=== PATIENT | male | born 1960 | race Caucasian/White ===

== ENCOUNTER 2023-03-21 20:17 | Emergency (ER) | payer BC, SELFPAY ==
--- NOTE | ~2023-03-21 | XR_ITS ---
EXAMINATION: XR elbow LT min 3V DATE: 03/21/2023 21:54 INDICATION: Left elbow pain and swelling TECHNIQUE: Anteroposterior, two oblique and lateral views of the left elbow were obtained. COMPARISON: None. FINDINGS: Alignment is normal. No fracture or joint effusion. 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 There is posterior soft tissue swelling of the forearm overlying the proximal ulna. IMPRESSION: 1. Soft tissue swelling without acute osseous abnormality. Reviewed, dictated and finalized at location A.
[2023-03-21 20:25] VITALS: BP 150/96; PULSE 100; RESP 20; TEMP 36.6; O2SAT 95
--- NOTE | 2023-03-21 23:27 | ED.UPPEXIN ---
HPI - Extremity Injury (Upper) General Chief Complaint: Extremity Injury, Upper Stated Complaint: L arm swelling Time Seen by Provider: 03/21/23 21:44 Source: patient Mode of arrival: ambulatory Limitations: no limitations History of Present Illness HPI narrative: Patient is a 62-year-old male who presents to the ED with report of left elbow pain. Patient reports he was cleaning his boat today when he slipped and fell, hitting his left elbow directly against the boat. He complains of pain and swelling to his left elbow, extending up his posterior upper arm. He notes a history of a previous left elbow fracture and states he chipped off a piece of the bone that they never removed. He denies any shoulder or wrist pain. Denies numbness or tingling. He did not hit his head or lose consciousness. Related Data Allergies Allergy/AdvReac Type Severity Reaction Status Date / Time No Known Allergies Allergy Verified 03/21/23 20:17 Review of Systems Review of Systems: CONSTITUTIONAL: Denies fever, chills, or sweats. MUSCULOSKELETAL: See HPI. NEUROLOGIC: See HPI. All systems reviewed & are unremarkable except as noted in HPI and below PMFSH Past Medical History Medical History Diabetes mellitus HLD (hyperlipidemia) HTN (hypertension) Exam Narrative: GENERAL: Well appearing, obese with BMI of 37, non-toxic, in no acute distress. HEAD: Normocephalic, atraumatic. NECK: Supple. No adenopathy, no masses. RESPIRATORY: Airway patent, respirations nonlabored. CARDIOVASCULAR: Regular rate and rhythm without murmurs, rubs, or gallops. Radial pulses 2+ and equal bilaterally. MUSCULOSKELETAL: Moves all extremities. Strength/ROM intact without gross deformities. Full nonpainful range of motion of left elbow flexion, extension, supination/pronation. Mild swelling noted to left elbow olecranon and extending slightly down proximal forearm. Mild tenderness palpation directly over olecranon, mild tenderness to left upper posterior arm. No ecchymosis. Sensation intact. No tenderness to palpation over left shoulder or left wrist. SKIN: Warm, dry, normal color. Erythematous irregular scaling rash to chest and upper arms, consistent with tinea versicolor. NEURO: A&O X3. Speech clear. Cranial nerves II-XII grossly intact. Steady gait. No ataxic movements. PSYCHIATRIC: Appropriate mood and affect. Normal interaction. Course Vital Signs Vital signs: Vital Signs Temperature 97.9 F 03/21/23 20:25 Pulse Rate 100 03/21/23 20:25 Respiratory Rate 20 03/21/23 20:25 Blood Pressure 150/96 H 03/21/23 20:25 Pulse Oximetry 95 03/21/23 20:25 Oxygen Delivery Room Air 03/21/23 20:25 Temperature 97.9 F 03/21/23 20:25 Pulse Rate 100 03/21/23 20:25 Respiratory Rate 20 03/21/23 20:25 Blood Pressure 150/96 H 03/21/23 20:25 Pulse Oximetry 95 03/21/23 20:25 Oxygen Delivery Room Air 03/21/23 20:25 MDM - Extremity Injury (Upper) MDM Narrative Medical decision making narrative: Patient presented to ED status post fall, left elbow injury. Patient's injury is consistent with musculoskeletal etiology. No signs of neurologic or vascular compromise on physical examination. Compartments are soft without signs of compartment syndrome. XR left elbow without evidence for acute fracture or dislocation. Does show soft tissue swelling and old fracture which patient was aware of. Discussed imaging findings with patient. Will provide Raymond bandage. Discussed RICE treatment. Incidentally on my exam, I noticed that patient had a rash to his chest and upper arms that appear to be consistent with tinea versicolor. Will prescribe ketoconazole cream for this. Patient given return precautions. D/C in stable condition. Medical Records Attestation: I reviewed the patient's medical records. Imaging Data Attestation: I personally reviewed and interpreted this imaging study a
[2023-03-21 23:44] VITALS: BP 160/99; PULSE 93; RESP 20; O2SAT 95
== END 2023-03-21 23:46 | disposition home or self-care (01) ==
PROVIDERS: Emergency Provider Physician Assistant; PCP Family Medicine Sports Medicine
DX: S50.02XA Contusion of left elbow, initial encounter (principal); B36.0 Pityriasis versicolor; I10 Essential (primary) hypertension; E11.9 Type 2 diabetes mellitus without complications; E78.5 Hyperlipidemia, unspecified; W01.198A Fall on same level from slipping, tripping and stumbling with subsequent striking against other object, initial encounter
CPT/HCPCS: 73080; 99283

== ENCOUNTER 2023-11-10 17:42 | Emergency (ER) | payer MEDICARE, SELFPAY ==
[2023-11-10 17:40] VITALS: BP 155/96; PULSE 118; RESP 20; TEMP 36.9; O2SAT 97
--- NOTE | 2023-11-10 17:52 | ECG_ITS ---
Measurements Intervals [place] Rate: 114 P: 24 MS: 190 QRS: -54 QRSD: 106 T: 63 QT: 327 QTc: 450 Interpretive Statements SINUS TACHYCARDIA VENTRICULAR PREMATURE COMPLEXES LEFT ANTERIOR FASCICULAR BLOCK ANTEROSEPTAL INFARCT, AGE INDETERMINATE BORDERLINE ST-T WAVE ABNORMALITY- HIGH LATERAL LEADS BASELINE ARTIFACT- I, AVR, AVL, V1-V2 ABNORMAL ECG NO PREVIOUS ECG AVAILABLE FOR COMPARISON Electronically Signed On 11-10-2023 21:12:09 [employer] by Dmitiry Harper D.O.
[2023-11-10] MEDS: methylPREDNISolone SOD SUCC 125 MG VIAL IV PUSH (18:04)
[2023-11-10] MEDS: diphenhydrAMINE HCl INJ 50 MG/ML VIAL 25 MG IV PUSH (18:04)
[2023-11-10] MEDS: FAMOTIDINE 20 MG/2 ML VIAL IV PUSH (18:04)
--- NOTE | 2023-11-10 18:05 | ED.ALLEREA ---
HPI - Allergic Reaction General Chief complaint: Allergic Reaction Stated complaint: allergic reaction Time Seen by Provider: 11/10/23 17:45 History of Present Illness HPI narrative: Patient is a 63-year-old male who presents ER with concern for allergic reaction. Patient developed tingling in the perioral region. He developed hives to his body with itching. He also became very redness face. he denies difficulty breathing or swallowing. He received epinephrine by EMS. He reports since receiving epinephrine his rash is resolved and his tingling has improved. He also feels the swelling that he started to notice in his lips has gone down. reports he initially had a muffled voice but it has resolved. Patient takes lisinopril. Took around noon. Denies any other potential allergic exposure including foods or noxious chemicals. Related Data Allergies Allergy/AdvReac Type Severity Reaction Status Date / Time lisinopril Allergy Swelling Verified 11/10/23 17:49 of Lip/Tongue/Throat Review of Systems Review of Systems: All systems reviewed & are unremarkable except as noted in HPI and below Constitutional: Constitutional: Denies chills, Denies fatigue and Denies fever(s) ENT: Denies nasal congestion and Denies sore throat Respiratory: Respiratory: Reports no additional respiratory complaints Gastrointestinal: Gastrointestinal: Reports no additional gastrointestinal complaints Genitourinary: Genitourinary: Reports no additional male genitourinary complaints Allergic/Immunologic: Allergic/Immunologic: Reports lip swelling, Denies throat swelling, Denies tongue swelling and Denies wheezing PMFSH Past Medical History Medical History Diabetes mellitus HLD (hyperlipidemia) HTN (hypertension) Exam Narrative: GENERAL: Well-appearing, obese, and in no acute distress. HEAD: Normocephalic, atraumatic. ENT: Mucous membranes moist. Mild erythema to the oral mucosa. No angioedema of the tongue. the tonsils are slightly enlarged proximally 2+. Uvula midline nonedematous. NECK: Supple. CHEST: Clear to auscultation. No respiratory distress. HEART: tachycardic and regular. Normal peripheral pulses. ABDOMEN: Soft, nontender, nondistended. EXTREMITIES: Normal range of motion. No edema. SKIN: Warm, dry, no rash. NEURO: Alert and oriented x3. PSYCH: Normal mood and affect. Course Course Emergency Course: Patient resting comfortably. Multiple re-evaluations show the patient is no rebound of swelling to tongue or lips. He is tolerating oral secretions that issue. He has no shortness of breath. No discomfort in his throat or tongue. Feels as if he is back to normal. He has received famotidine/ Solu-Medrol/ Benadryl. Recommend discontinuing lisinopril and will prescribe supportive care medications for the next couple of days. Patient verbalized understanding treatment plan and feels comfortable with discharge home. Vital Signs Vital signs: Vital Signs Temperature 98.5 F 11/10/23 17:40 Pulse Rate 118 H 11/10/23 17:40 Respiratory Rate 20 11/10/23 17:40 Blood Pressure 155/96 H 11/10/23 17:40 Pulse Oximetry 97 11/10/23 17:40 Oxygen Delivery Room Air 11/10/23 17:40 Temperature 98.5 F 11/10/23 17:40 Pulse Rate 99 11/10/23 21:13 Respiratory Rate 15 11/10/23 21:13 Blood Pressure 120/76 11/10/23 21:13 Pulse Oximetry 98 11/10/23 21:14 Oxygen Delivery Room Air 11/10/23 21:14 MDM - Allergic Reaction Lab Data 11/10/23 18:16 11/10/23 18:16 Labs: Lab Results 11/10/23 Range/Units 18:16 WBC 15.5 H (4.5-10.0) K/mm3 RBC 5.20 (4.6-6.20) M/mm3 Hgb 15.9 (14.0-18.0) g/dL Hct 48.8 (42.0-52.0) % MCV 93.8 (80-100) fl MCH 30.6 (26-34) pg MCHC 32.6 (32-36) g/dl RDW 12.4 (11.5-14.5) % Plt Count 278 (150-375) k/mm3 MPV 10.4 (7.4-10.4) fl [place]
[2023-11-10 18:23] LABS: Basophils Absolute Auto 0.1 K/mm3 (0.0-0.1); Basophils Percent Auto 0.6 % (0.2-1.2); Eosinophils Absolute Auto 0.4 K/mm3 (0-0.3); Eosinophils Percent Auto 2.6 % (0-4.4); Hematocrit 48.8 % (42.0-52.0); Hemoglobin 15.9 g/dL (14.0-18.0); Immature Granulocyte Absolute 0.07 K/mm3 (0.00-0.031); Immature Granulocyte Percent A 0.5 % (0-0.5); Lymphocytes Absolute Auto 4.98 K/mm3 (0.9-3.2); Mean Corpuscular HGB Conc 32.6 g/dl (32-36); Mean Corpuscular Hemoglobin 30.6 pg (26-34); Mean Corpuscular Volume 93.8 fl (80-100); Mean Platelet Volume 10.4 fl (7.4-10.4); Monocytes Absolute Auto 1.2 K/mm3 (0.1-0.6); Monocytes Percent Auto 7.7 % (2.6-8.5); Neutrophils Absolute Auto 8.8 K/mm3 (1.3-6.7); Neutrophils Percent Auto 56.6 % (45.5-73.1); Platelet Count Result 278 k/mm3 (150-375); Red Cell Distribution Width 12.4 % (11.5-14.5); White Blood Count 15.5 K/mm3 (4.5-10.0)
[2023-11-10 18:32] LABS: Alanine Aminotransferase 38 U/L (6-50); Albumin Level 4.1 g/dL (3.5-5.1); Alkaline Phosphatase 76 U/L (38-126); Anion Gap 13 mmol/L (8-16); Aspartate Amino Transferase 29 U/L (17-59); Bilirubin,Total 0.7 mg/dL (0.2-1.3); Blood Urea Nitrogen 19 mg/dL (9-20); Calcium 9.4 mg/dL (8.4-10.2); Carbon Dioxide 23 mmol/L (22-30); Chloride 102 mmol/L (98-107); Estimated CRCL calculation 98 ml/min; Estimated Glomerular Filt Rate > 60; Glucose 275 mg/dL (65-110); Potassium 3.4 mmol/L (3.4-5.0); Sodium 138 mmol/L (137-145)
[2023-11-10 18:33] LABS: Partial Thromboplastin Time 25.5 SECONDS (22.3-36.8); Prothrombin Time 13.1 Seconds (11.1-14.7)
[2023-11-10 21:13] VITALS: BP 120/76; PULSE 99; RESP 15; O2SAT 99
[2023-11-10 21:14] VITALS: O2SAT 98
[2023-11-10 22:03] VITALS: BP 145/92; PULSE 102; RESP 15; O2SAT 94
== END 2023-11-10 22:15 | disposition home or self-care (01) ==
PROVIDERS: Emergency Provider Emergency Medicine; PCP Family Medicine
DX: T78.3XXA Angioneurotic edema, initial encounter (principal); T46.4X5A Adverse effect of angiotensin-converting-enzyme inhibitors, initial encounter; E11.9 Type 2 diabetes mellitus without complications; E78.5 Hyperlipidemia, unspecified; I10 Essential (primary) hypertension; R00.0 Tachycardia, unspecified; I44.4 Left anterior fascicular block; I49.3 Ventricular premature depolarization; R94.31 Abnormal electrocardiogram [ECG] [EKG]
CPT/HCPCS: 36415; 80053; 85025; 85610; 85730; 93005; 96374; 96375; 99284; J1200; J2930